=== PATIENT | female | born 1945 | race Caucasian/White ===

== ENCOUNTER 2017-05-23 07:00 | Day surgery (SDC) | payer MEDICARE, OTHER ==
[~2017-05-23 07:00] MED LIST: Lactated Ringers 1,000 ML IV SCH; Lidocaine 1%/Sod Bicarbonate in NS 8.4% 1 ML Syringe IDERM PRN; Sodium Chloride 0.9% 10 ML Syringe FLUSH PRN
[2017-05-23] MEDS ORDERED: fentaNYL 100 MCG/2 ML SDV ONE (07:25)
[2017-05-23] MEDS ORDERED: Propofol 200 MG/20 ML SDV ONE (07:25)
--- NOTE | 2017-05-23 07:34 | PCM.PREANE ---
Preanesthetic Assessment - Procedure Proposed Procedure: Diagnostic EGD Diagnostic colonoscopy - Anesthesia/Transfusion/Family Hx Anesthesia History: Prior Anesthesia Reaction Type of Anesthesia Reaction: Excessive Nausea/Vomiting Family History of Anesthesia Reaction: No Transfusion History: No Prior Transfusion(s) - Review of Systems General: No Symptoms Pulmonary: Other (Left upper lobe throacotpmy ) Cardiovascular: Other Gastrointestinal: Other (GERD ) Neurological: No Symptoms Other: Reports: None - Physical Assessment NPO Status Date: 05/22/17 NPO Status Time: 22:00 O2 Sat by Pulse Oximetry: 97 Respiratory Rate: 16 Vital Signs: Last Vital Signs Temp 36.7 C 05/23/17 07:00 Pulse 83 05/23/17 07:00 Resp 16 05/23/17 07:00 BP 122/67 05/23/17 07:00 Pulse Ox 97 05/23/17 07:00 Height: 1.7 m Weight: 50.802 kg - Allergies Allergies/Adverse Reactions: Allergies Allergy/AdvReac Type Severity Reaction Status Date / Time pneumococcal 23-valent Allergy Swelling Verified 05/22/17 15:38 polysacchari [From Pneumovax 23] aspirin AdvReac Shaking Verified 05/22/17 15:38 PreAnesthesia Questionnaire HEENT History: Reports: Impaired Vision, Other (See Below) Other HEENT History: wears glasses, has dentures Cardiovascular History: Reports: Angina, CAD, PVD Other Cardiovascular History: PAD Respiratory History: Reports: COPD Other Respiratory History: bronchoscopy, EGD - LLL wedge Thoracotomy Gastrointestinal History: Reports: Colon Polyp, Diverticulosis, GERD, Hemorrhoids, Other (See Below) Other Gastrointestinal History: left upper quad cramping, gastric ulcers, gastroduodenitis, esophagitis, hemorrohoids, diapharagmatic hernia, heartburn, weight loss Other Genitourinary History: Right kidney cyst 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 Other OB/BYN History: Hysterectomy, D&C Musculoskeletal History: Reports: Fracture, Other (See Below) Other Musculoskeletal History: Osteopenia, wrist fracture Neurological History: Reports: None Psychiatric History: Reports: None Endocrine/Metabolic History: Reports: Osteopenia, Vitamin D Deficiency Hematologic History: Reports: Anemia Immunologic History: Reports: None Oncologic (Cancer) History: Reports: None Dermatologic History: Reports: None - Past Surgical History Head Surgeries/Procedures: Reports: None HEENT Surgical History: Reports: Cataract Surgery Cardiovascular Surgical History: Reports: None Respiratory Surgical History: Reports: Thoracotomy Other Respiratory Surgeries/Procedures: Left lower lobe GI Surgical History: Reports: Appendectomy, Colonoscopy, EGD Female Surgical History: Reports: Other (See Below) Other Female Surgeries/Procedures: Bladder lift Endocrine Surgical History: Reports: None Neurological Surgical History: Reports: None Oncologic Surgical History: Reports: None Dermatological Surgical History: Reports: None - SUBSTANCE USE Smoking Status *Q: Current Every Day Smoker (0.5ppd for 50 years) Tobacco Use Within Last Twelve Months: Cigarettes Second Hand Smoke Exposure: Yes Days Per Week of Alcohol Use: 0 Recreational Drug Use History: No - HOME MEDS Home Medications: Home Meds Acetaminophen [Tylenol] 650 mg PO Q4H PRN 10/19/15 [History] Albuterol [Proair HFA] 2 puff INH Q4H PRN 10/19/15 [History] Aspirin [Halfprin] 81 mg PO BRK 10/19/15 [History] Cyanocobalamin (Vitamin B12) [Vitamin B12] 500 mcg PO DAILY 10/19/15 [History] Pantoprazole Sodium [Protonix] 40 mg PO DAILY #90 suspdr.pkt 10/20/15 [Rx] Meloxicam [Meloxicam] 7.5 mg PO DAILY 05/22/17 [History] Ranitidine HCl [Zantac] 150 mg PO DAILY 05/22/17 [History] Sucralfate [Carafate] 1 gm PO QID 05/22/17 [History] atorvaSTATin [Lipitor] 40 mg PO DAILY 05/22/17 [History] - CURRENT (IN HOUSE) MEDS Current Meds: Current Medications Lactated Ringer's (Ringers, Lactated) 1,000 mls @ 125 mls/hr IV ASDIRECTED CHRISTA Stop: 05/23/17 23:00 Last Admin: 05/23/17 07:15 Dose: 125 mls/hr Lidocaine/Sodium Bicarbonate (Buffered Lidocaine 1% In Ns 8.4%) 0.25 ml IDERM ONETIME PRN PRN Reason: Prior to IV Start Stop: 05/23/17 18:00 Sodium Chloride (Saline Flush) 10 ml FLUSH ASDIRECTED PRN PRN Reason: Keep Vein Open Stop: 05/23/17 18:00 Discontinued Medications Fentanyl (Sublimaze) Confirm Administered Dose 100 mcg .ROUTE .STK-MED ONE Stop: 05/23/17 07:26 Propofol (Diprivan 20 Ml) Confirm Administered Dose 200 mg .ROUTE .STK-MED ONE Stop: 05/23/17 07:26
--- NOTE | 2017-05-23 09:01 | PCM48HPAN ---
Post Anesthesia Note - EVALUATION WITHIN 48HRS OF ANESTHETIC Vital Signs in Normal Range: Yes Patient Participated in Evaluation: Yes Respiratory Function Stable: Yes Airway Patent: Yes Cardiovascular Function Stable: Yes Hydration Status Stable: Yes Pain Control Satisfactory: Yes Nausea and Vomiting Control Satisfactory: Yes Mental Status Recovered: Yes
--- NOTE | 2017-05-23 09:02 | PCM.OPNOTE ---
- General Post-Op/Procedure Note Date of Surgery/Procedure: 05/23/17 Operative Procedure(s): EGD with bx and colonosocopy to cecum Pre Op Diagnosis: abnormal ct of distal esophagus and rectum Post-Op Diagnosis: Same Anesthesia Technique: MAC Primary Surgeon: Luis Pringle EBL in mLs: 0 Complications: None Condition: Good
[2017-05-23 09:19] VITALS: BP 127/70
--- NOTE | 2017-05-23 15:03 | OR ---
DATE OF OPERATION: 05/23/2017 SURGEON: Luis Pringle MD PREOPERATIVE DIAGNOSIS: Reflux and abnormal CT scan showing distal esophageal thickening. POSTOPERATIVE DIAGNOSIS: Reflux and abnormal CT scan showing distal esophageal thickening. OPERATION PERFORMED: Esophagogastroduodenoscopy with biopsy. FINDINGS: Normal 2nd portion of the duodenum, duodenal bulb, pyloric channel, antrum, body and cardia of the stomach showed thinning of the gastric mucosa with appearance of a healing ulcer in the antrum. This was biopsied. J-maneuver showed a small hiatal hernia. Fundus was unremarkable as the cardia. The scope withdrawn at the GE junction did not show any acute process and the rest of the esophagus viewed was unremarkable. ANESTHESIA: Done under IV sedation. DESCRIPTION OF PROCEDURE: The patient was taken to the endoscopy room, placed in a supine position, connected to monitoring equipment, given IV sedation, placed in left lateral position. Bite block was inserted and video Olympus gastroscope placed in a posterior oropharynx under direct vision, threaded past the cricopharyngeus down the esophagus into the stomach. The stomach was insufflated and the scope passed through the pylorus to the second portion of the duodenum. It was then slowly withdrawn showing a normal 2nd portion of the duodenum, duodenal bulb, pyloric channel and antrum showed some thinning, and in 1 area showed a small superficial healing ulcer and this was biopsied. J-maneuver was performed showing fundus, body, and cardia. This was unremarkable. Scope was withdrawn to the GE junction which was normal. The Z-line was sharp, located at 35 cm. Rest of the esophagus viewed and the scope withdrawn was normal. The patient tolerated the procedure, specimen sent to Pathology in a labeled container and patient's IV sedation will be continued for colonoscopy. ESTIMATED BLOOD LOSS: MMODAL /[id number]
--- NOTE | 2017-05-23 15:03 | OR ---
DATE OF OPERATION: 05/23/2017 SURGEON: Luis Pringle MD PREOPERATIVE DIAGNOSIS: Abnormal CT scan of the rectum showing thickening. POSTOPERATIVE DIAGNOSIS: Abnormal CT scan of the rectum showing thickening. OPERATION PERFORMED: Colonoscopy to cecum. FINDINGS: Occasional diverticula in sigmoid colon and internal hemorrhoids. There were no angiodysplasias, neoplasias, large tumor masses, ulcerations, or colitis. ANESTHESIA: Under IV sedation. DESCRIPTION OF PROCEDURE: The patient having been taken to the endoscopy room and undergone upper GI endoscopy under IV sedation, IV sedation was continued for colonoscopy, placed in the left lateral position. Perianal area showed some hemorrhoidal tags. Rectal exam showed good sphincter tone. A video Olympus colonoscope was then introduced into the rectum and threaded up without problem to the cecum, where the cecal anatomy was clearly seen. Prep was excellent throughout the colon. [place] cleansing score grade A. The scope was slowly withdrawn showing the cecum, ascending colon, transverse colon, descending colon, sigmoid colon, and rectum. Retroflexed view was done. The above noted was found. The patient tolerated the procedure, was sent to recovery room in a stable condition, and will be followed up in the clinic. ESTIMATED BLOOD LOSS: MMODAL /[id number]
== END 2017-05-23 09:42 | disposition home or self-care (01) ==
LOC: JD.SDS 07:00
PROVIDERS: ATTEND Surgery
DX: K31.89 Other diseases of stomach and duodenum (principal); K44.9 Diaphragmatic hernia without obstruction or gangrene; K57.30 Diverticulosis of large intestine without perforation or abscess without bleeding; K64.8 Other hemorrhoids; K21.9 Gastro-esophageal reflux disease without esophagitis; E55.9 Vitamin D deficiency, unspecified; I73.9 Peripheral vascular disease, unspecified; M85.80 Other specified disorders of bone density and structure, unspecified site; F17.210 Nicotine dependence, cigarettes, uncomplicated; I25.10 Atherosclerotic heart disease of native coronary artery without angina pectoris; J44.9 Chronic obstructive pulmonary disease, unspecified; Z86.010 Personal history of colon polyps; Z90.49 Acquired absence of other specified parts of digestive tract; Z98.890 Other specified postprocedural states; Z90.710 Acquired absence of both cervix and uterus; Z79.899 Other long term (current) drug therapy; Z88.6 Allergy status to analgesic agent; Z88.7 Allergy status to serum and vaccine
CPT/HCPCS: 43239; 45378; 88305; 88342; J3010; J7120; 00813; J2704

== ENCOUNTER 2020-05-03 11:02 | Emergency (ER) | payer OTHER, MEDICARE ==
[2020-05-03 11:27] VITALS: BP 119/71; PULSE 79
--- NOTE | 2020-05-03 11:33 | EDM.PDOC ---
ED HPI GENERAL MEDICAL PROBLEM - General Chief Complaint: Lower Extremity Injury/Pain Stated Complaint: RIGHT HIP INJURY Time Seen by Provider: 05/03/20 11:19 Source of Information: Reports: Patient, RN Notes Reviewed History Limitations: Reports: No Limitations - History of Present Illness INITIAL COMMENTS - FREE TEXT/NARRATIVE: Patient is a 74-year-old female presenting to the emergency department with complaints of right groin and medial upper leg pain after falling on ice. Patient states that she was ambulating on the ice and slipped, falling onto her right hip. She was able to get up after the fall and walk into the building. She states initially she had some numbness in the extremity, however this has resolved. She denies any previous injuries or surgeries on this hip. Denies the need for pain medications at this time. Right Groin Pain Score (Numeric/FACES): 3 - Related Data Allergies Allergy/AdvReac Type Severity Reaction Status Date / Time pneumococcal 23-valent Allergy Swelling Verified 05/22/17 15:38 polysacchari [From Pneumovax 23] aspirin AdvReac Shaking Verified 05/22/17 15:38 Home Meds: Home Meds Acetaminophen [Tylenol] 650 mg PO Q4H PRN 10/19/15 [History] Albuterol [Proair HFA] 2 puff INH Q4H PRN 10/19/15 [History] Pantoprazole Sodium [Protonix] 40 mg PO DAILY #90 suspdr.pkt 10/20/15 [Rx] atorvaSTATin Calcium [Lipitor] 40 mg PO DAILY 05/03/20 [History] Past Medical History HEENT History: Reports: Impaired Vision, Other (See Below) Other HEENT History: wears glasses, has dentures Cardiovascular History: Reports: Angina, CAD, PVD Other Cardiovascular History: PAD Respiratory History: Reports: COPD Other Respiratory History: bronchoscopy, EGD - LLL wedge Thoracotomy Gastrointestinal History: Reports: Colon Polyp, Diverticulosis, GERD, Hemorrhoids, Other (See Below) Other Gastrointestinal History: left upper quad cramping, gastric ulcers, gastroduodenitis, esophagitis, hemorrohoids, diapharagmatic hernia, heartburn, weight loss Other Genitourinary History: Right kidney cyst TITLE I 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 Other TITLE I PARAPROFESSIONAL History: Hysterectomy, D&C Musculoskeletal History: Reports: Fracture, Other (See Below) Other Musculoskeletal History: Osteopenia, wrist fracture Neurological History: Reports: None Psychiatric History: Reports: None Endocrine/Metabolic History: Reports: Osteopenia, Vitamin D Deficiency Hematologic History: Reports: Anemia Immunologic History: Reports: None Oncologic (Cancer) History: Reports: None Dermatologic History: Reports: None - Past Surgical History Head Surgeries/Procedures: Reports: None HEENT Surgical History: Reports: Cataract Surgery Cardiovascular Surgical History: Reports: None Respiratory Surgical History: Reports: Thoracotomy Other Respiratory Surgeries/Procedures: Left lower lobe GI Surgical History: Reports: Appendectomy, Colonoscopy, EGD Female Surgical History: Reports: Other (See Below) Other Female Surgeries/Procedures: Bladder lift Endocrine Surgical History: Reports: None Neurological Surgical History: Reports: None Oncologic Surgical History: Reports: None Dermatological Surgical History: Reports: None Social & Family History - Family History HEENT: Reports: Other (See Below) Other HEENT Family History: blindness GI: Reports: Other (See Below) Other GI Family History: ulcerative colitis Neurological: Reports: CVA, Dementia Other Endocrine/Metabolic Family History: diabetes Oncologic: Reports: Lymphoma, Skin - Tobacco Use Tobacco Use Status *Q: Current Every Day Tobacco User Years of Tobacco use: 40 Packs/Tins Daily: 0.5 - Caffeine Use Caffeine Use: Reports: Coffee, Soda, Tea - Recreational Drug Use Recreational Drug Use: No Review of Systems - Review of Systems Review Of Systems: See Below Constitutional: Reports: No Symptoms Eyes: Reports: No Symptoms Ears: Reports: No Symptoms Nose: Reports: No Symptoms Mouth/Throat: Reports: No Symptoms Respiratory: Reports: No Symptoms Cardiovascular: Reports: No Symptoms GI/Abdominal: Reports: No Symptoms Genitourinary: Reports: No Symptoms Musculoskeletal: Reports: Other (Right groin and medial upper leg pain) Skin: Reports: No Symptoms Neurological: Reports: No Symptoms Psychiatric: Reports: No Symptoms ED EXAM, GENERAL - Physical Exam Exam: See Below General Appearance: Alert, WD/WN, No Apparent Distress Head: Atraumatic, Normocephalic Neck: Normal Inspection, Supple, Non-Tender, Full Range of Motion Respiratory/Chest: No Respiratory Distress, Lungs Clear, Normal Breath Sounds, No Accessory Muscle Use, Chest Non-Tender Cardiovascular: Normal Peripheral Pulses, Regular Rate, Rhythm, No Edema, No Gallop, No JVD, No Murmur, No Rub GI/Abdominal: Normal Bowel Sounds, Soft, Non-Tender, No Organomegaly, No Distention, No Abnormal Bruit, No Mass Extremities: Normal Inspection, Normal Range of Motion, No Pedal Edema, Normal Capillary Refill, Other (Mild tenderness in the right groin. No edema or obvious deformity. ) Neurological: Alert, Oriented, CN II-XII Intact, Normal Cognition, Normal Gait, Normal Reflexes, No Motor/Sensory Deficits Psychiatric: Normal Affect, Normal Mood Skin Exam: Warm, Dry, Intact, Normal Color, No Rash Course - Vital Signs Last Recorded V/S: Last Vital Signs Temp 97.6 F 05/03/20 11:25 Pulse 79 05/03/20 11:25 Resp 20 05/03/20 11:25 BP 119/71 05/03/20 11:25 Pulse Ox 94 L 05/03/20 11:25 - Re-Assessments/Exams Free Text/Narrative Re-Assessment/Exam: Patient is a 74-year-old female presenting to the emergency department with complaints of right groin and upper leg pain after slipping and falling on the ice. She was able to get up on her own volition and get herself into the house. She denies any previous injuries to her hip or pelvis. Denies the need for pain medications. I have ordered x-rays of the right hip and pelvis. 05/03/20 12:00 X-rays of the right hip and pelvis were negative for any acute fractures. Discussed with patient that she likely is suffering from a muscle/ligament strain. Recommend ice and heat as well as Tylenol and ibuprofen as needed. Discussed return precautions. Discharge instructions as document. Departure - Departure Time of Disposition: 12:01 Disposition: Home, Self-Care 01 Condition: Good Clinical Impression: Strain of right hip Qualifiers: Encounter type: initial encounter Qualified Code(s): S76.011A - Strain of muscle, fascia and tendon of right hip, initial encounter - Discharge Information *PRESCRIPTION DRUG MONITORING PROGRAM REVIEWED*: No *COPY OF PRESCRIPTION DRUG MONITORING REPORT IN PATIENT DIONNE: No Instructions: Muscle Strain, [id number] Referrals: Nalini Mayer BUTANE COMPRESSOR OPERATOR [Primary Care Provider] - Forms: ED Department Discharge Additional Instructions: You were seen in the emergency department today for right groin and upper leg pain after slipping on the ice. X-rays were completed and were found to be normal. There are no fractures of your hip or pelvis. As we discussed, you are likely suffering from a muscle strain related to the fall. Recommend intermittent heat and ice to the area. You may use [id number] Tylenol or ibuprofen as needed for discomfort. If you continue to have significant discomfort after 1 week, recommend follow-up in the clinic with your primary care provider. Return to ER as needed. Sepsis Event Note (ED) - Evaluation Sepsis Screening Result: No Definite Risk - Focused Exam Vital Signs: Vital Signs Temp Pulse Resp BP Pulse Ox 05/03/20 11:25 97.6 F 79 20 119/71 94 L
--- NOTE | 2020-05-03 11:53 | CR ---
Pelvis and right hip: AP view of the pelvis was obtained as well as AP and frog-leg lateral views of the right hip. Comparison: No prior plain film pelvis or hip exam is available. Findings: Joint spaces within both hips are maintained. Sacroiliac joints appear within normal limits for patient's age. Atherosclerotic calcification is seen within the iliac vessels. Osteopenia is noted. No acute fracture or dislocation is seen. Impression: 1. Findings as noted above. 2. Nothing acute is seen on AP pelvis or 2 view right hip exam. Diagnostic code #2
== END 2020-05-03 12:11 | disposition home or self-care (01) ==
LOC: JD.ED 11:02
DX: S76.011A Strain of muscle, fascia and tendon of right hip, initial encounter (principal); I25.10 Atherosclerotic heart disease of native coronary artery without angina pectoris; J44.9 Chronic obstructive pulmonary disease, unspecified; K21.9 Gastro-esophageal reflux disease without esophagitis; Z72.0 Tobacco use; Z88.7 Allergy status to serum and vaccine; Z88.6 Allergy status to analgesic agent; Z79.899 Other long term (current) drug therapy; W00.0XXA Fall on same level due to ice and snow, initial encounter
CPT/HCPCS: 73502-26-RT; 73502-RT; 99282; 99283-25

== ENCOUNTER 2020-08-23 09:22 | Day surgery (SDC) | payer MEDICARE, OTHER ==
[~2020-08-23 09:22] MED LIST changes: +Albuterol 0.083% 2.5 MG/3 ML Neb Soln NEB PRN; +Scopolamine 1.5 MG Transdermal Patch TRDERM PRN
--- NOTE | 2020-08-23 09:53 | PCM.PREANE ---
Preanesthetic Assessment - Procedure Proposed Procedure: diag egd - Anesthesia/Transfusion/Family Hx Anesthesia History: Prior Anesthesia Reaction Type of Anesthesia Reaction: Excessive Nausea/Vomiting Family History of Anesthesia Reaction: No Transfusion History: No Prior Transfusion(s) - Review of Systems General: No Symptoms Pulmonary: No Symptoms Cardiovascular: No Symptoms Gastrointestinal: Abdominal Pain (upper abd) Neurological: No Symptoms Other: Reports: None - Physical Assessment NPO Status Date: 08/22/20 NPO Status Time: 21:00 Vital Signs: 144/69 86 97% 16 97.4 Height: 5 ft 6 in Weight: 55.3 kg ASA Class: 2 Mental Status: Alert & Oriented x3 Airway Class: Mallampati = 1 Dentition: Reports: Dentures (top and bottom) Thyro-Mental Finger Breadths: 3 Mouth Opening Finger Breadths: 3 ROM/Head Extension: Full Lungs: Clear to Auscultation, Normal Respiratory Effort, Decreased Breath Sounds Cardiovascular: Regular Rate, Regular Rhythm - Allergies Allergies/Adverse Reactions: Allergies Allergy/AdvReac Type Severity Reaction Status Date / Time levofloxacin [From Levaquin] Allergy Cannot Verified 08/22/20 12:12 Remember aspirin AdvReac Shaking Verified 08/22/20 12:12 - Blood Blood Available: No - Acknowledgements Anesthesia Type Planned: MAC Pt an Appropriate Candidate for the Planned Anesthesia: Yes Alternatives and Risks of Anesthesia Discussed w Pt/Guardian: Yes Pt/Guardian Understands and Agrees with Anesthesia Plan: Yes PreAnesthesia Questionnaire HEENT History: Reports: Impaired Vision, Other (See Below) Other HEENT History: wears glasses, has dentures Cardiovascular History: Reports: Angina, CAD, PVD Other Cardiovascular History: PAD Respiratory History: Reports: COPD Other Respiratory History: bronchoscopy, EGD - LLL wedge Thoracotomy Gastrointestinal History: Reports: Colon Polyp, Diverticulosis, GERD, Hemorrhoids, Other (See Below) Other Gastrointestinal History: left upper quad cramping, gastric ulcers, gastroduodenitis, esophagitis, hemorrohoids, diapharagmatic hernia, heartburn, weight loss Other Genitourinary History: Right kidney cyst 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 Other OB/BYN History: Hysterectomy, D&C Musculoskeletal History: Reports: Fracture, Other (See Below) Other Musculoskeletal History: Osteopenia, wrist fracture Neurological History: Reports: None Psychiatric History: Reports: None Endocrine/Metabolic History: Reports: Osteopenia, Vitamin D Deficiency Hematologic History: Reports: Anemia Immunologic History: Reports: None Oncologic (Cancer) History: Reports: None Dermatologic History: Reports: None - Past Surgical History Head Surgeries/Procedures: Reports: None HEENT Surgical History: Reports: Cataract Surgery Cardiovascular Surgical History: Reports: None Respiratory Surgical History: Reports: Thoracotomy Other Respiratory Surgeries/Procedures: Left lower lobe GI Surgical History: Reports: Appendectomy, Colonoscopy, EGD Female Surgical History: Reports: Other (See Below) Other Female Surgeries/Procedures: Bladder lift Endocrine Surgical History: Reports: None Neurological Surgical History: Reports: None Oncologic Surgical History: Reports: None Dermatological Surgical History: Reports: None - SUBSTANCE USE Tobacco Use Status *Q: Current Every Day Tobacco User Tobacco Use Within Last Twelve Months: Cigarettes Second Hand Smoke Exposure: Yes Days Per Week of Alcohol Use: 0 Recreational Drug Use History: No - HOME MEDS Home Medications: Home Meds Acetaminophen [Tylenol] 650 mg PO Q4H PRN 10/19/15 [History] Albuterol [Proair HFA] 2 puff INH Q4H PRN 10/19/15 [History] Pantoprazole Sodium [Protonix] 40 mg PO DAILY #90 suspdr.pkt 10/20/15 [Rx] atorvaSTATin Calcium [Lipitor] 40 mg PO DAILY 05/03/20 [History] - CURRENT (IN HOUSE) MEDS Current Meds: Current Medications Albuterol (Albuterol 0.083% 2.5 Mg/3 Ml Neb Soln) 2.5 mg NEB ONETIME PRN PRN Reason: COPD Stop: 08/23/20 16:00 Lactated Ringer's (Ringers, Lactated) 1,000 mls @ 125 mls/hr IV ASDIRECTED CHRSITA Stop: 08/23/20 23:00 Lidocaine/Sodium Bicarbonate (Lidocaine 1%/Sod Bicarbonate In Ns 8.4% 1 Ml Syringe) 0.25 ml IDERM ONETIME PRN PRN Reason: Prior to IV Start Stop: 08/23/20 23:00 Scopolamine (Scopolamine 1.5 Mg Transdermal Patch) 1.5 mg TRDERM ONETIME PRN PRN Reason: PONV Stop: 08/23/20 18:00 Sodium Chloride (Sodium Chloride 0.9% 10 Ml Syringe) 10 ml FLUSH ASDIRECTED PRN PRN Reason: Keep Vein Open Stop: 08/23/20 23:00
[2020-08-23] MEDS ORDERED: Lidocaine 1% 4 ML ONE (09:59)
[2020-08-23] MEDS ORDERED: Propofol 200 MG/20 ML SDV ONE (09:59)
--- NOTE | 2020-08-23 10:29 | PCM.PRNOTE ---
- Free Text/Narrative Note: Date: 08/23/2020 Procedure: diagnostic esophagogastroduodenoscopy Indication: abdominal pain, history of peptic ulcer Endoscopist: Niraj Garcia MD Findings: no abnormal findings. Detailed Report: The patient was taken to the endoscopy suite and placed in left lateral decubitus position. Timeout was performed and monitored anesthesia care was initiated. A bite-block was placed in the endoscope was inserted into the mouth. The scope was advanced to the distal duodenum with ease. Duodenal mucosa appeared normal. A sample of duodenal mucosa was obtained with cold forceps. Scope was withdrawn into the stomach. The pylorus, antrum, incisura, body, fundus all appeared normal. There is no evidence of hiatal hernia. A biopsy of antral mucosa was obtained. The scope was withdrawn into the distal esophagus. The Z-line appeared normal. A biopsy of distal esophageal mucosa was obtained. Air was suctioned from the stomach and esophagus as the scope was withdrawn. The patient tolerated the procedure well.
--- NOTE | 2020-08-23 10:36 | PCM48HPAN ---
Post Anesthesia Note - EVALUATION WITHIN 48HRS OF ANESTHETIC Vital Signs in Normal Range: Yes Patient Participated in Evaluation: Yes Respiratory Function Stable: Yes Airway Patent: Yes Cardiovascular Function Stable: Yes Hydration Status Stable: Yes Pain Control Satisfactory: Yes Nausea and Vomiting Control Satisfactory: Yes Mental Status Recovered: Yes Vital Signs: Last Vital Signs Temp 97.4 F 08/23/20 09:40 Pulse 86 08/23/20 09:40 Resp 16 08/23/20 09:40 BP 144/69 H 08/23/20 09:40 Pulse Ox 97 08/23/20 09:40 1030 111/63 78 18 97.4 95%
[2020-08-23 12:17] VITALS: BP 132/69; PULSE 74
== END 2020-08-23 11:13 | disposition home or self-care (01) ==
LOC: JD.SDS 09:22
PROVIDERS: ATTEND Surgery
DX: K31.89 Other diseases of stomach and duodenum (principal); K21.9 Gastro-esophageal reflux disease without esophagitis; I25.10 Atherosclerotic heart disease of native coronary artery without angina pectoris; E78.00 Pure hypercholesterolemia, unspecified; J44.1 Chronic obstructive pulmonary disease with (acute) exacerbation; I10 Essential (primary) hypertension; M81.0 Age-related osteoporosis without current pathological fracture; F17.210 Nicotine dependence, cigarettes, uncomplicated; Z87.11 Personal history of peptic ulcer disease; Z88.8 Allergy status to other drugs, medicaments and biological substances; Z98.84 Bariatric surgery status; Z98.890 Other specified postprocedural states
CPT/HCPCS: 43239; 88305; 88313; 88342; J2704; J7120; 00731